=== PATIENT | male | born 1950 | race Hispanic/Latino ===

== ENCOUNTER 2021-03-24 09:41 | Emergency (ER) | payer MEDICARE ==
--- NOTE | 2021-03-24 10:05 | Emergency Department Report ---
HPI - General Time Seen by Provider: 03/24/21 09:45 - HPI HPI: Room 21 Patient is a 70-year-old male present with a chief complaint of left-sided weakness. The patient is a resident of [facility] with a last known well time of 05:00. Per EMS the patient was found by staff with left-sided hemiparesis and slurred speech. Patient hypertensive with EMS with a systolic blood pressure of 195. Patient answers questions and follows commands ED Past Medical Hx - Past Medical History Hx Hypertension: Yes Hx Diabetes: Yes Hx Psychiatric Treatment: Yes (Schizophrenia) - Surgical History Past Surgical History?: No - Family History Family history: no significant - Social History Smoking Status: Unknown if ever smoked ED Review of Systems ROS: Stated complaint: POSS STROKE Other details as noted in HPI Constitutional: no symptoms reported Eyes: denies: eye pain ENT: throat pain Respiratory: no symptoms reported Cardiovascular: denies: chest pain Endocrine: no symptoms reported Gastrointestinal: denies: nausea Musculoskeletal: arthralgia Neurological: weakness Physical Exam - Physical Exam Physical Exam: GENERAL: The patient is well-developed well-nourished male lying on stretcher with dense left hemiparesis. [] HEENT: Normocephalic. Atraumatic. Extraocular motions are intact. Patient has moist mucous membranes. NECK: Supple. Trachea midline CHEST/LUNGS: Clear to auscultation. There is no respiratory distress noted. HEART/CARDIOVASCULAR: Regular. There is no tachycardia. There is no gallop rub or murmur. ABDOMEN: Abdomen is soft, nontender. Patient has normal bowel sounds. There is no abdominal distention. SKIN: There is no rash. There is no edema. There is no diaphoresis. NEURO: The patient opens his eyes to verbal stimuli and follows commands. The patient is cooperative. The patient has a dense left hemiparesis. The patient has slurred speech. GCS 13 MUSCULOSKELETAL: There is no evidence of acute injury. ED Course - Consultations Consultation #1: 03/24/21 10:05 Neurosurgery paged Consultation #2: 03/24/21 10:07 Case discussed with telemetry neurologist. Recommends keeping head of bed elevated 30 degrees, neurosurgical consultation and if transfer is necessary recommends given mannitol 1 g/kg for travel times greater than 20 minutes. Also recommends mannitol if patient becomes less arousable. Recommends repeat head CT in 4 to 6 hours. No Keppra Consultation #3: 08/01/21 10:17 [facility] transfer line called 03/24/21 10:21 Case discussed with neurosurgeon Dr. Herring- unfortunately no beds available at this time. If a bed becomes available we will reach Out 03/24/21 10:24 [facility] transfer line called-Case discussed with [facility] neuro hand i thermal cutter Dr. Harris will accept patient in transfer. ED Medical Decision Making - Lab Data Result diagrams: 03/24/21 10:00 03/24/21 10:00 Laboratory Tests 03/24/21 03/24/21 03/24/21 09:45 10:00 10:00 WBC 16.4 H RBC 5.30 H Hgb 15.8 H Hct 46.8 H MCV 88 MCH 30 MCHC 34 RDW 13.9 Plt Count 147 Add Manual Diff Complete Total Counted 100 Seg Neutrophils % Blood Bank Laboratory Technologist Seg Neuts % (Manual) 97.0 H Lymphocytes % (Manual) 1.0 L Monocytes % (Manual) 2.0 Nucleated RBC % Not Reportable Seg Neutrophils # Man 15.9 H Band Neutrophils # 0.0 Lymphocytes # (Manual) 0.2 L Abs React Lymphs (Man) 0.0 Monocytes # (Manual) 0.3 Eosinophils # (Manual) 0.0 Basophils # (Manual) 0.0 Metamyelocytes # 0.0 Myelocytes # 0.0 Promyelocytes # 0.0 Blast Cells # 0.0 WBC Morphology Not Reportable Hypersegmented Neuts Not Reportable Hyposegmented Neuts Not Reportable Hypogranular Neuts Not Reportable Smudge Cells Not Reportable Toxic Granulation Not Reportable Toxic Vacuolation Not Reportable Dohle Bodies Not Reportable Pelger-Huet Anomaly Not Reportable Marylu Rods Not Reportable Platelet Estimate Consistent w auto Clumped Platelets Not Reportable Plt Clumps, EDTA Not Reportable Large Platelets Not Reportable Giant Platelets Not Reportable Platelet Satelliting Not Reportable Plt Morphology Comment Not Reportable RBC Morphology Normal Dimorphic RBCs Not Reportable Polychromasia Not Reportable Hypochromasia Not Reportable Poikilocytosis Not Reportable Anisocytosis Not Reportable Microcytosis Not Reportable Macrocytosis Not Reportable Spherocytes Not Reportable Pappenheimer Bodies Not Reportable Sickle Cells Not Reportable Target Cells Not Reportable Tear Drop Cells Not Reportable Ovalocytes Not Reportable Helmet Cells Not Reportable [place] Bodies Not Reportable [place] Rings Not Reportable Prue Cells Not Reportable Bite Cells Not Reportable Crenated Cell Not Reportable Elliptocytes Not Reportable Acanthocytes (Spur) Not Reportable Rouleaux Not Reportable Hemoglobin C Crystals Not Reportable Schistocytes Not Reportable Malaria parasites Not Reportable Nolan Bodies Not Reportable Hem Pathologist Commnt No PT 13.9 INR 1.02 APTT 25.3 Thrombin Time 16.5 VBG pH Sodium Potassium Chloride Carbon Dioxide Anion Gap BUN Creatinine Estimated GFR BUN/Creatinine Ratio Glucose POC Glucose 315 H Calcium Total Bilirubin AST ALT Alkaline Phosphatase Total Protein Albumin Albumin/Globulin Ratio 03/24/21 03/24/21 03/24/21 10:00 10:00 10:00 WBC RBC Hgb Hct MCV MCH MCHC RDW Plt Count Add Manual Diff Total Counted Seg Neutrophils % Seg Neuts % (Manual) Lymphocytes % (Manual) Monocytes % (Manual) Nucleated RBC % Seg Neutrophils # Man Band Neutrophils # Lymphocytes # (Manual) Abs React Lymphs (Man) Monocytes # (Manual) Eosinophils # (Manual) Basophils # (Manual) Metamyelocytes # Myelocytes # Promyelocytes # Blast Cells # WBC Morphology TNR Hypersegmented Neuts Hyposegmented Neuts Hypogranular Neuts Smudge Cells Toxic Granulation Toxic Vacuolation Dohle Bodies Pelger-Huet Anomaly Marylu Rods Platelet Estimate Clumped Platelets Plt Clumps, EDTA Large Platelets Giant Platelets Platelet Satelliting Plt Morphology Comment RBC Morphology Dimorphic RBCs Polychromasia Hypochromasia Poikilocytosis Anisocytosis Microcytosis Macrocytosis Spherocytes Pappenheimer Bodies Sickle Cells Target Cells Tear Drop Cells Ovalocytes Helmet Cells Barrientos-[place] Bodies [place] Rings She Cells Bite Cells Crenated Cell Elliptocytes Acanthocytes (Spur) Rouleaux Hemoglobin C Crystals Schistocytes Malaria parasites Nolan Bodies Hem Pathologist Commnt PT INR APTT Thrombin Time VBG pH 7.334 Sodium 135 L Potassium 4.4 Chloride 95.1 L Carbon Dioxide 23 Anion Gap 21 BUN 6 L Creatinine 0.5 L Estimated GFR > 60 BUN/Creatinine Ratio 12 Glucose 298 H POC Glucose Calcium 9.9 Total Bilirubin 0.60 AST 19 ALT 14 Alkaline Phosphatase 218 H Total Protein 7.1 Albumin 5.0 Albumin/Globulin Ratio 2.4 - EKG Data -: EKG Interpreted by Oh EKG shows normal: sinus rhythm Rate: bradycardia - EKG Data When compared to previous EKG there are: previous EKG unavailable Interpretation: nonspecific ST-T wave aliza (T wave inversions in leads V2, V3) - Radiology Data Radiology results: report reviewed (CT head), image reviewed (CT head) [facility] [address] [place] [address] Cat Scan Report Signed Patient: SANDRA KIMBLE MR#: [id number] : 1950 Acct:[id number] Age/Sex: 70 / M ADM Date: 03/24/21 Loc: ED Attending Dr: Ordering Physician: SHAMEKA SELLERS MD Date of Service: 03/24/21 Procedure(s): CT head/brain wo con Accession Number(s): [id number] cc: SHAMEKA SELLERS MD CT HEAD WITHOUT CONTRAST INDICATION / CLINICAL INFORMATION: CODE STROKE CALL ER MAIN AT 8199 Left hemiparesis, slurred speech. TECHNIQUE: All CT scans at this location are performed using CT dose reduction for ALARA by means of automated exposure control. COMPARISON: None available. FINDINGS: HEMORRHAGE: A large (3.5 x 2.2 x 3.4 cm) right thalamic hematoma is demonstrated. There is intraventricular extension with moderate clot burden in the right lateral ventricle and blood products in the left lateral ventricle and third ventricle. EXTRA-AXIAL SPACES: Cortical sulci and sylvian fissures are enlarged reflecting a degree of parenchymal volume loss which is greater than expected for the patient's age of 70 years. Basilar cisterns have an unremarkable appearance. VENTRICULAR SYSTEM: Left lateral ventricle is mildly enlarged. Possibility of developing hydrocephalus should be considered. CEREBRAL PARENCHYMA: Hypothalamic hematoma as described. Moderate Microvascular ischemic changes are present in both cerebral hemispheres. MIDLINE SHIFT OR HERNIATION: Large thalamic hematoma compresses the third ventricle and right lateral ventricle. There are about 2 mm of right to left midline shift at the level of the septum pellucidum. CEREB ELLUM / BRAINSTEM: Brainstem has an unremarkable appearance. Age related cerebellar atrophy is noted. MIDLINE STRUCTURES:Pituitary gland has an unremarkable appearance. No abnormalities are seen in the pineal region. INTRACRANIAL VESSELS: Extensively calcified atherosclerotic plaque is present along the course of the cavernous segments of both internal carotid arteries. Similar findings are seen at the distal ve rtebral arteries. ORBITS: visualized portions of the orbits have an unremarkable appearance. SOFT TISSUES of HEAD: No significant abnormality. CALVARIUM: Evaluation of bone windows reveals no abnormalities. PARANASAL SINUSES / MASTOID AIR CELLS: Paranasal sinuses are free from inflammatory mucosal disease. Mastoid air cells are normally pneumatized. IMPRESSION: 1. Large right thalamic hematoma with intraventricular extension as described in detail above. CODE STROKE: Time of Communication (LOGISTICS SPECIALIST/CDT): 0904 Central standard time Licensed Practitioner Receiving Report: Dr. Sellers of the [facility] emergency department Signer Name: Rex Goodwin MD Signed: 03/24/2021 10:10 AM Workstation Name: [id number] Transcribed By: Dictated By: Rex Goodwin MD Electronically Authenticated By: Rex Goodwin MD Signed Date/Time: 03/24/21 1010 DD/ 1002 TD/TT: Print Cancel - Differential Diagnosis CVA, ICH Critical Care Time: Yes Critical care time in (mins) excluding proc time.: 30 Critical care attestation.: If time is entered above; I have spent that time in minutes in the direct care of this critically ill patient, excluding procedure time. ED Disposition Clinical Impression: Hypertensive emergency, Intracranial hemorrhage Disposition: DC/TX-70 ANOTHER TYPE HLTHCARE Is pt being admited?: No Does the pt Need Aspirin: No Condition: Serious Instructions: Hypertension (ED) Referrals: PRIMARY CARE, [Primary Care Provider] - 3-5 Days
--- NOTE | 2021-03-24 10:14 | Cat Scan Report ---
CT HEAD WITHOUT CONTRAST INDICATION / CLINICAL INFORMATION: CODE STROKE CALL ER MAIN AT 8199 Left hemiparesis, slurred speech. TECHNIQUE: All CT scans at this location are performed using CT dose reduction for ALARA by means of automated e xposure control. COMPARISON: None available. FINDINGS: HEMORRHAGE: A large (3.5 x 2.2 x 3.4 cm) right thalamic hematoma is demonstrated. There is intraventr icular extension with moderate clot burden in the right lateral ventricle and blood products in the l eft lateral ventricle and third ventricle. EXTRA-AXIAL SPACES: Cortical sulci and sylvian fissures are enlarged reflecting a degree of parenchym al volume loss which is greater than expected for the patient's age of 70 years. Basilar cisterns hav e an unremarkable appearance. VENTRICULAR SYSTEM: Left lateral ventricle is mildly enlarged. Possibility of developing hydrocephalu s should be considered. CEREBRAL PARENCHYMA: Hypothalamic hematoma as described. Moderate Microvascular ischemic changes are present in both cerebral hemispheres. MIDLINE SHIFT OR HERNIATION: Large thalamic hematoma compresses the third ventricle and right lateral ventricle. There are about 2 mm of right to left midline shift at the level of the septum pellucidum . CEREBELLUM / BRAINSTEM: Brainstem has an unremarkable appearance. Age related cerebellar atrophy is n oted. MIDLINE STRUCTURES:Pituitary gland has an unremarkable appearance. No abnormalities are seen in the p ineal region. INTRACRANIAL VESSELS: Extensively calcified atherosclerotic plaque is present along the course of the cavernous segments of both internal carotid arteries. Similar findings are seen at the distal verteb ral arteries. ORBITS: visualized portions of the orbits have an unremarkable appearance. SOFT TISSUES of HEAD: No significant abnormality. CALVARIUM: Evaluation of bone windows reveals no abnormalities. PARANASAL SINUSES / MASTOID AIR CELLS: Paranasal sinuses are free from inflammatory mucosal disease. Mastoid air cells are normally pneumatized. IMPRESSION: 1. Large right thalamic hematoma with intraventricular extension as described in detail above. CODE STROKE: Time of Communication (MEDICAL RECORD CODER/CDT): 0904 Central standard time Licensed Practitioner Receiving Report: Dr. Gamino of the [facility] emergency de partment Signer Name: Rex Goodwin MD Signed: 03/24/2021 10:10 AM Workstation Name: [id number]
[2021-03-24 10:15] LABS: Hematocrit 46.8 % (35.5-45.6); Hemoglobin 15.8 gm/dl (11.8-15.2); Mean Corpuscular HGB Conc 34 % (32-34); Mean Corpuscular Volume 88 fl (84-94); Platelet Count 147 K/mm3 (140-440); Red Cell Distribution Width 13.9 % (13.2-15.2)
[2021-03-24 10:24] LABS: INR 1.02 (0.87-1.13)
[2021-03-24 10:25] LABS: Partial Thromboplastin Time 25.3 Sec. (24.2-36.6); Thrombin Time 16.5 Sec. (15.1-19.6)
--- NOTE | 2021-03-24 10:37 | Consultation ---
History of Present Illness History of present illness: [facility] Consult Note # Demographics Consult Type: Acute Stroke Level 1 (0-4.5 hrs) Patient Location: Emergency Room First Name: Tuan Last Name: Fantasma Date of : 1950 Age: 70 Gender: Male Time of Initial Page ( Time): 03/24/2021, 09:48 Time of Return Call ( Time): 03/24/2021, 09:48 # HPI History: 71M with DM and schizophrenia presents from [facility] living after found on floor with slurred speech and left-sided weakness. BP 194/122. LKWT 0500. # Scores Time of exam and NIHSS (): 03/24/2021, 09:52 Level of Consciousness 1a: [0] = Alert; keenly responsive LOC Questions 1b: [0] = Answers both questions correctly LOC Commands 1c: [0] = Performs both tasks correctly Best Gaze 2: [0] = Normal Visual 3: [2] = Complete hemianopia Facial Palsy 4: [2] = Partial paralysis Motor Arm Left 5a: [4] = No movement Motor Arm Right 5b: [0] = No drift Motor Leg Left 6a: [4] = No movement Motor Leg Right 6b: [2] = Some effort against gravity Limb Ataxia 7: [0] = Absent Sensory 8: [2] = Severe to total sensory loss Best Language 9: [0] = No aphasia Dysarthria 10: [1] = [id number] dysarthria Extinction and Inattention 11: [1] = Visual, tactile, auditory, spatial, or personal inattention NIHSS Total: 18 ICH Score: [0] = GCS 13-15 [0] = age < 80 [0] = ICH vol < 30 mL [1] = intraventricular hemorrhage [0] = origin of hemorrhage NOT infratentorial ICH Score total: 1 # Data Time Head CT personally read by me (): 03/24/2021, 09:[address]: hemorrhage preliminarily reviewed by me, please refer to radiology read for official reading Right basal ganglia hemorrhage with IVH # Assessment Impression: Intracerebral hemorrhage Intraventricular hemorrhage # Plan Thrombolytic/Intervention: NOT IV Thrombolysis or IA Intervention candidate Thrombolytic Exclusion (3-4.5 hour window): ICH Intraarterial Exclusion: ICH Blood Pressure Management: nicardipine Target Blood Pressure: SBP < 160 DBP < 105 Additional Recommendations: HOB > 30 degrees q1hr neurochecks Transfer for neurosurgical evaluation Repeat CT head in 4-6 hours Close monitoring, low threshold to give mannitol 1g/kg Disposition: transfer # Logistics Telemedicine: Interactive 2 way audio and visual telecommunication technology was utilized during this visit Electronically signed at 03/24/2021 10:35 (Eastern Time) by Wong Burgos MD Medications and Allergies Active Meds: Active Medications Nicardipine/Sodium Chloride (Cardene Drip 40 Mg/200 Ml) 40 mg in 200 mls @ 25 mls/hr IV ONCE ONE; Protocol Stop: 03/24/21 18:03 Physical Examination - Vital Signs Vital Signs: Vital Signs Pulse 62 03/24/21 10:04 Results - Laboratory Findings CBC and BMP: 03/24/21 10:00 Abnormal Lab Findings: Abnormal Labs 03/24/21 03/24/21 09:45 10:00 WBC 16.4 H RBC 5.30 H Hgb 15.8 H Hct 46.8 H POC Glucose 315 H
[2021-03-24 10:47] LABS: Alanine Aminotransferase 14 units/L (7-56); Blood Urea Nitrogen 6 mg/dL (9-20); Calcium 9.9 mg/dL (8.4-10.2); Hemolysis Index 32
[2021-03-24 10:48] LABS: BUN/Creatinine Ratio 12
[2021-03-24] MEDS ORDERED: MANNITOL 20% 500 ML IV ONE (11:00)
[2021-03-24] MEDS ORDERED: niCARdipine DRIP 40 MG/200 ML BAG IV ONE (11:00)
[2021-03-24 11:07] LABS: Total Cells Counted 100
[2021-03-24 11:10] LABS: Platelet Estimate Consistent w Auto; RBC Morphology Normal
[2021-03-24 11:30] VITALS: BP 160/82
--- NOTE | 2021-03-25 10:39 | Electrocardiograph Report ---
[facility] Test Date: 2021-03-24 Test Time: 10:34:36 Pat Name: SANDRA KIMBLE Department: Room: Gender: M Him Analyst: KINDRA : 1950 Requested By: SHAMEKA SELLERS Order Number: [id number] Reading MD: eRg Meaz Measurements Intervals [place] Rate: 57 P: 36 AL: 161 QRS: 14 QRSD: 96 T: 0 QT: 521 QTc: 510 Interpretive Statements Sinus bradycardia Nonspecific T abnormalities, anterior leads Prolonged QT interval No previous ECG available for comparison Electronically Signed On 03-25-2021 10:38:57 EDT by Reg Meza
== END 2021-03-24 11:00 | disposition other institution (70) ==
LOC: ED 09:41
DX: I16.1 Hypertensive emergency (principal); I10 Essential (primary) hypertension; I62.9 Nontraumatic intracranial hemorrhage, unspecified; R53.1 Weakness; E11.8 Type 2 diabetes mellitus with unspecified complications; F20.9 Schizophrenia, unspecified
CPT/HCPCS: 36415; 70450; 80053; 82805; 82962; 85007; 85025; 85610; 85670; 85730; 93005; 96374; 96375; 99291; J2150; 99285